=== PATIENT | male | born 1980 | race Caucasian/White ===

== ENCOUNTER 2017-05-21 10:14 | Outpatient (CLI) | payer OTHER ==
[2016-06-04 13:36] VITALS: O2SAT 93
== END 2017-05-21 10:15 | disposition home or self-care (01) | DRG 561 ==
LOC: CONVCARE 10:14
PROVIDERS: ATTEND Orthopaedic Surgery
DX: S62.616D Displaced fracture of proximal phalanx of right little finger, subsequent encounter for fracture with routine healing (principal)
CPT/HCPCS: 73140

== ENCOUNTER 2017-05-31 09:44 | Outpatient (CLI) | payer OTHER ==
[2016-06-04 13:36] VITALS: O2SAT 93
== END 2017-05-31 09:45 | disposition home or self-care (01) | DRG 561 ==
LOC: CONVCARE 09:44
PROVIDERS: ATTEND Orthopaedic Surgery
DX: S62.616D Displaced fracture of proximal phalanx of right little finger, subsequent encounter for fracture with routine healing (principal)
CPT/HCPCS: 73140

== ENCOUNTER 2017-06-22 07:48 | Outpatient (CLI) | payer OTHER ==
[2016-06-04 13:36] VITALS: O2SAT 93
== END 2017-06-22 07:49 | disposition home or self-care (01) | DRG 561 ==
LOC: CONVCARE 07:48
PROVIDERS: ATTEND Orthopaedic Surgery
DX: S62.616D Displaced fracture of proximal phalanx of right little finger, subsequent encounter for fracture with routine healing (principal)
CPT/HCPCS: 73140

== ENCOUNTER 2019-01-19 17:00 | Emergency (ER) | payer OTHER ==
[2019-01-19 17:35] LABS: BASOPHILS % (AUTO) 1 % (0-3); EOSINOPHILS % (AUTO) 1 % (0-9); HEMATOCRIT 48 % (39-53); HEMOGLOBIN 15.5 gm/dl (13.5-17.7); MEAN CORPUSCULAR HEMOGLOBIN 28.5 pg (27.0-32.0); MEAN CORPUSCULAR HGB CONC 32.1 gm/dl (32.0-36.0); MEAN CORPUSCULAR VOLUME 89 fL (80-100); MONOCYTES % (AUTO) 5.9 % (0-12); NEUTROPHILS % (AUTO) 77.1 % (37-80)
[2019-01-19 17:46] LABS: ALBUMIN 4.4 gm/dl (3.4-5.0); BILIRUBIN,TOTAL 0.4 mg/dl (0.2-1.0); CALCIUM 9.1 mg/dl (8.5-10.1); CARBON DIOXIDE 25.4 mEq/L (21-32); CREATININE 0.71 mg/dl (0.80-1.30); TOTAL PROTEIN 8.2 gm/dl (6.4-8.2)
[2019-01-19 18:03] VITALS: TEMP 98.6
[2019-01-19] MEDS ORDERED: LIDOCAINE HCL 1% MDV 50 ML SOL SC ONE (19:15)
[2019-01-19] MEDS ORDERED: LIDOCAINE HCL 1% MPF 30 SOL ONE (19:19)
[2019-01-19] MEDS ORDERED: AMOXIL/CLAVULANATE 400/5 ML PDR PO ONE (20:18)
[2019-01-19] MEDS ORDERED: AUGMENTIN(FRIDGE) 400 MG/5 ML ONE (20:22)
[2019-01-19] MEDS ORDERED: APAP/HYDROCODONE 1 EACH TABLET PO ONE (20:52)
[2019-01-19] MEDS ORDERED: APAP/HYDROCODONE 1 EACH TABLET ONE (20:53)
[2019-01-19 21:02] VITALS: BP 157/89; PULSE 88; RESP 18; O2SAT 97
== END 2019-01-19 20:55 | disposition home or self-care (01) | DRG 125 ==
LOC: ED 17:00
DX: S02.30XB Fracture of orbital floor, unspecified side, initial encounter for open fracture (principal); V86.55XA Driver of 3- or 4- wheeled all-terrain vehicle (ATV) injured in nontraffic accident, initial encounter; S01.111A Laceration without foreign body of right eyelid and periocular area, initial encounter; E11.9 Type 2 diabetes mellitus without complications; R55 Syncope and collapse; S01.411A Laceration without foreign body of right cheek and temporomandibular area, initial encounter
CPT/HCPCS: 12013; 70450; 70486; 72125; 73590; 80053; 85025; 85610; 99285; 99291; G0390; A6402; A9270-GY; J2001